=== PATIENT | male | born 1985 | race African-American/Black ===

== ENCOUNTER 2016-10-14 21:46 | Emergency (ER) | payer MEDICAID | END 2016-10-15 02:15 | disposition home or self-care (01) | LOC: D.ER 21:46 | DX: J20.9 Acute bronchitis, unspecified (principal); F84.0 Autistic disorder; F31.9 Bipolar disorder, unspecified; F20.9 Schizophrenia, unspecified; F17.200 Nicotine dependence, unspecified, uncomplicated ==

== ENCOUNTER 2017-10-17 12:53 | Emergency (ER) | payer MEDICAID ==
[2017-10-17 13:23] LABS: BASOPHILS 0.3 % (0-2); HEMATOCRIT 43.8 % (42.0-54.0); HEMOGLOBIN 14.9 g/dL (13.5-17.5); IMMATURE GRANULOCYTES 0.3 % (0-5); LYMPHOCYTES 23.5 % (15-50); MCH 28.9 pg (26.0-34.0); MCV 84.9 fL (80.0-100.0); MEAN PLATELET VOLUME 11.3 fL (7.4-10.4); NEUTROPHILS 64.9 % (40-80); PLATELET COUNT 176 10x3/uL (130-400); RBC 5.16 10x6/uL (4.20-6.10); RDW 13.4 % (11.5-14.5); WBC 6.3 10x3/uL (4.8-10.8)
[2017-10-17 13:45] LABS: AMYLASE - SERUM 89 U/L (25-115); LIPASE 118 U/L (73-393)
[2017-10-17 14:19] LABS: ALKALINE PHOSPHATASE 43 U/L (46-116); ALT (SGPT) 161 U/L (10-68); CALC OSMOLALITY 278 mosm/kg (275-300); CALCIUM 9.1 mg/dL (8.5-10.1); CARBON DIOXIDE 31.2 mmol/L (21.0-32.0); CHLORIDE - SERUM 103 mmol/L (98-107); CREATININE - SERUM 0.9 mg/dL (0.6-1.3); GLUCOSE 86 mg/dL (74-106); POTASSIUM - SERUM 4.4 mmol/L (3.5-5.1); PROTEIN - SERUM 6.9 g/dL (6.4-8.2); SODIUM 141 mmol/L (136-145); UREA NITROGEN 11 mg/dL (7-18); eGFR NON AFRICAN AMERICAN > 90 mL/min (90-120)
[2017-10-17 14:22] LABS: APPEARANCE CLEAR (CLEAR); BILIRUBIN NEGATIVE (NEGATIVE); COLOR YELLOW (YELLOW); GLUCOSE NEGATIVE (NEGATIVE); KETONE NEGATIVE (NEGATIVE); NITRITE NEGATIVE (NEGATIVE); PROTEIN NEGATIVE (NEGATIVE); UROBILINOGEN NORMAL (NORMAL)
== END 2017-10-17 15:50 | disposition home or self-care (01) ==
LOC: D.ER 12:53
PROVIDERS: Emergency Medicine; Physician Assistant
DX: K59.00 Constipation, unspecified (principal); M54.5 Low back pain; F17.200 Nicotine dependence, unspecified, uncomplicated

== ENCOUNTER 2017-10-29 12:18 | Emergency (ER) | payer MEDICAID ==
[2017-10-29 12:57] LABS: APPEARANCE CLEAR (CLEAR); BILIRUBIN NEGATIVE (NEGATIVE); COLOR YELLOW (YELLOW); GLUCOSE NEGATIVE (NEGATIVE); KETONE NEGATIVE (NEGATIVE); NITRITE NEGATIVE (NEGATIVE); PROTEIN NEGATIVE (NEGATIVE); SPECIFIC GRAVITY 1.015 (1.005-1.020); UROBILINOGEN NORMAL (NORMAL)
[2017-10-29 13:17] LABS: BASOPHILS 0.2 % (0-2); EOSINOPHILS 1.7 % (0-7); HEMATOCRIT 44.9 % (42.0-54.0); HEMOGLOBIN 15.3 g/dL (13.5-17.5); IMMATURE GRANULOCYTES 0.2 % (0-5); LYMPHOCYTES 34.6 % (15-50); MCH 28.7 pg (26.0-34.0); MCHC 34.1 g/dL (31.0-37.0); MCV 84.1 fL (80.0-100.0); MEAN PLATELET VOLUME 12.1 fL (7.4-10.4); MONOCYTES 9.1 % (2-11); NEUTROPHILS 54.2 % (40-80); PLATELET COUNT 194 10x3/uL (130-400); RBC 5.34 10x6/uL (4.20-6.10); RDW 13.4 % (11.5-14.5); WBC 5.9 10x3/uL (4.8-10.8)
[2017-10-29 13:19] LABS: ALBUMIN 4.1 g/dL (3.4-5.0); ALKALINE PHOSPHATASE 44 U/L (46-116); ALT (SGPT) 80 U/L (10-68); AMYLASE - SERUM 94 U/L (25-115); BILIRUBIN - TOTAL 0.61 mg/dL (0.2-1.3); CALC OSMOLALITY 282 mosm/kg (275-300); CALCIUM 9.1 mg/dL (8.5-10.1); CARBON DIOXIDE 32.2 mmol/L (21.0-32.0); CHLORIDE - SERUM 103 mmol/L (98-107); CREATININE - SERUM 0.9 mg/dL (0.6-1.3); GLUCOSE 108 mg/dL (74-106); LIPASE 139 U/L (73-393); PROTEIN - SERUM 7.3 g/dL (6.4-8.2); SODIUM 142 mmol/L (136-145); UREA NITROGEN 11 mg/dL (7-18); eGFR NON AFRICAN AMERICAN > 90 mL/min (90-120)
== END 2017-10-29 15:24 | disposition home or self-care (01) ==
LOC: D.ER 12:18
PROVIDERS: Family Medicine
DX: N41.9 Inflammatory disease of prostate, unspecified (principal)

== ENCOUNTER 2017-11-10 10:42 | Emergency (ER) | payer MEDICAID ==
[2017-11-10 12:20] LABS: BASOPHILS 0.2 % (0-2); EOSINOPHILS 1.4 % (0-7); HEMATOCRIT 42.2 % (42.0-54.0); HEMOGLOBIN 14.4 g/dL (13.5-17.5); IMMATURE GRANULOCYTES 0.2 % (0-5); LYMPHOCYTES 32.3 % (15-50); MCH 28.9 pg (26.0-34.0); MCHC 34.1 g/dL (31.0-37.0); MCV 84.6 fL (80.0-100.0); MEAN PLATELET VOLUME 11.2 fL (7.4-10.4); MONOCYTES 10.1 % (2-11); NEUTROPHILS 55.8 % (40-80); RBC 4.99 10x6/uL (4.20-6.10); RDW 13.5 % (11.5-14.5); WBC 5.1 10x3/uL (4.8-10.8)
[2017-11-10 12:23] LABS: ALBUMIN 3.8 g/dL (3.4-5.0); ALKALINE PHOSPHATASE 33 U/L (46-116); ALT (SGPT) 44 U/L (10-68); CALC OSMOLALITY 280 mosm/kg (275-300); CALCIUM 8.5 mg/dL (8.5-10.1); CARBON DIOXIDE 30.5 mmol/L (21.0-32.0); CHLORIDE - SERUM 104 mmol/L (98-107); CREATININE - SERUM 0.8 mg/dL (0.6-1.3); GLUCOSE 152 mg/dL (74-106); POTASSIUM - SERUM 4.3 mmol/L (3.5-5.1); PROTEIN - SERUM 6.8 g/dL (6.4-8.2); SODIUM 140 mmol/L (136-145); UREA NITROGEN 11 mg/dL (7-18); eGFR NON AFRICAN AMERICAN > 90 mL/min (90-120)
[2017-11-10 12:43] LABS: PLATELET COUNT 150 10x3/uL (130-400)
[2017-11-10 12:54] LABS: APPEARANCE CLEAR (CLEAR); BILIRUBIN NEGATIVE (NEGATIVE); COLOR DK YELLOW (YELLOW); GLUCOSE NEGATIVE (NEGATIVE); KETONE NEGATIVE (NEGATIVE); NITRITE NEGATIVE (NEGATIVE); PROTEIN NEGATIVE (NEGATIVE); SPECIFIC GRAVITY 1.025 (1.005-1.020)
== END 2017-11-10 14:10 | disposition home or self-care (01) ==
LOC: D.ER 10:42
PROVIDERS: Family Medicine
DX: R53.1 Weakness (principal); R63.0 Anorexia

== ENCOUNTER 2017-11-12 09:11 | Emergency (ER) | payer MEDICAID | END 2017-11-12 11:36 | disposition home or self-care (01) | LOC: D.ER 09:11 | DX: R10.9 Unspecified abdominal pain (principal) ==

== ENCOUNTER 2017-11-27 07:44 | Emergency (ER) | payer MEDICAID ==
[2017-11-27 08:32] LABS: ALBUMIN 3.5 g/dL (3.4-5.0); ALKALINE PHOSPHATASE 35 U/L (46-116); ALT (SGPT) 33 U/L (10-68); BILIRUBIN - TOTAL 0.67 mg/dL (0.2-1.3); CALC OSMOLALITY 274 mosm/kg (275-300); CALCIUM 8.3 mg/dL (8.5-10.1); CARBON DIOXIDE 30.2 mmol/L (21.0-32.0); CHLORIDE - SERUM 104 mmol/L (98-107); CREATININE - SERUM 0.8 mg/dL (0.6-1.3); LIPASE 96 U/L (73-393); POTASSIUM - SERUM 3.9 mmol/L (3.5-5.1); PROTEIN - SERUM 6.5 g/dL (6.4-8.2); SODIUM 138 mmol/L (136-145); UREA NITROGEN 10 mg/dL (7-18); eGFR NON AFRICAN AMERICAN > 90 mL/min (90-120)
[2017-11-27 08:33] LABS: GLUCOSE 99 mg/dL (74-106)
[2017-11-27 08:45] LABS: APPEARANCE CLEAR (CLEAR); BACTERIA FEW /hpf (NONE SEEN); BILIRUBIN NEGATIVE (NEGATIVE); COLOR YELLOW (YELLOW); EPITHELIAL CELLS RARE /hpf (0-5); GLUCOSE NEGATIVE (NEGATIVE); KETONE NEGATIVE (NEGATIVE); MUCUS <1+ /lpf (NONE SEEN); NITRITE NEGATIVE (NEGATIVE); PROTEIN NEGATIVE (NEGATIVE); UROBILINOGEN NORMAL (NORMAL); WHITE CELLS - URINE RARE /hpf (0-5)
[2017-11-27 09:15] LABS: BASOPHILS 0.4 % (0-2); EOSINOPHILS 3.2 % (0-7); HEMATOCRIT 40.8 % (42.0-54.0); IMMATURE GRANULOCYTES 0.2 % (0-5); LYMPHOCYTES 30.6 % (15-50); MCH 28.8 pg (26.0-34.0); MCHC 34.3 g/dL (31.0-37.0); MEAN PLATELET VOLUME 12.1 fL (7.4-10.4); MONOCYTES 11.2 % (2-11); NEUTROPHILS 54.4 % (40-80); PLATELET COUNT 164 10x3/uL (130-400); RBC 4.86 10x6/uL (4.20-6.10); RDW 13.3 % (11.5-14.5); WBC 4.6 10x3/uL (4.8-10.8)
== END 2017-11-27 09:39 | disposition home or self-care (01) ==
LOC: D.ER 07:44
PROVIDERS: Emergency Medicine
DX: R10.9 Unspecified abdominal pain (principal); K29.00 Acute gastritis without bleeding; F17.200 Nicotine dependence, unspecified, uncomplicated

== ENCOUNTER 2017-12-27 08:52 | Emergency (ER) | payer MEDICAID | END 2017-12-27 09:41 | disposition home or self-care (01) | LOC: D.ER 08:52 | DX: R19.7 Diarrhea, unspecified (principal) ==

== ENCOUNTER 2018-02-25 08:44 | Emergency (ER) | payer MEDICAID ==
[~2018-02-25] VITALS: Ht 172.7 cm; Wt 75.0 kg
[2018-02-25 08:51] VITALS: Ht 172.7 cm; Wt 75.0 kg
[2018-02-25 09:11] LABS: APPEARANCE CLEAR (CLEAR); BILIRUBIN NEGATIVE (NEGATIVE); COLOR STRAW (YELLOW); GLUCOSE NEGATIVE (NEGATIVE); KETONE NEGATIVE (NEGATIVE); NITRITE NEGATIVE (NEGATIVE); PROTEIN NEGATIVE (NEGATIVE); SPECIFIC GRAVITY 1.005 (1.005-1.020); UROBILINOGEN NORMAL (NORMAL)
[2018-02-25 09:16] LABS: BASOPHILS 0.2 % (0-2); EOSINOPHILS 2.7 % (0-7); HEMATOCRIT 39.7 % (42.0-54.0); HEMOGLOBIN 13.8 g/dL (13.5-17.5); IMMATURE GRANULOCYTES 0.2 % (0-5); MCH 28.7 pg (26.0-34.0); MCHC 34.8 g/dL (31.0-37.0); MCV 82.5 fL (80.0-100.0); MEAN PLATELET VOLUME 11.5 fL (7.4-10.4); MONOCYTES 8.3 % (2-11); NEUTROPHILS 58.6 % (40-80); PLATELET COUNT 145 10x3/uL (130-400); RBC 4.81 10x6/uL (4.20-6.10); RDW 13.3 % (11.5-14.5); WBC 4.4 10x3/uL (4.8-10.8)
[2018-02-25 09:33] LABS: ALBUMIN 3.6 g/dL (3.4-5.0); ALKALINE PHOSPHATASE 41 U/L (46-116); ALT (SGPT) 23 U/L (10-68); AMYLASE - SERUM 88 U/L (25-115); BILIRUBIN - TOTAL 0.47 mg/dL (0.2-1.3); CALC OSMOLALITY 275 mosm/kg (275-300); CALCIUM 8.1 mg/dL (8.5-10.1); CARBON DIOXIDE 28.8 mmol/L (21.0-32.0); CHLORIDE - SERUM 104 mmol/L (98-107); CREATININE - SERUM 0.7 mg/dL (0.6-1.3); GLUCOSE 102 mg/dL (74-106); LIPASE 167 U/L (73-393); POTASSIUM - SERUM 3.9 mmol/L (3.5-5.1); PROTEIN - SERUM 6.3 g/dL (6.4-8.2); SODIUM 139 mmol/L (136-145); UREA NITROGEN 8 mg/dL (7-18); eGFR NON AFRICAN AMERICAN > 90 mL/min (90-120)
[2018-02-25 11:03] VITALS: BP 121/82
== END 2018-02-25 11:04 | disposition home or self-care (01) ==
LOC: D.ER 08:44
PROVIDERS: Family Medicine
DX: R10.9 Unspecified abdominal pain (principal); F17.200 Nicotine dependence, unspecified, uncomplicated

== ENCOUNTER 2018-03-06 08:15 | Emergency (ER) | payer MEDICAID ==
[~2018-03-06] VITALS: Ht 172.7 cm; Wt 75.0 kg
[2018-03-06 08:19] VITALS: Ht 172.7 cm; Wt 75.0 kg
[2018-03-06] MEDS ORDERED: XANAX0.25 MG (08:24)
[2018-03-06] MEDS ORDERED: ATIVAN0.5 MG (08:25)
[2018-03-06] MEDS ORDERED: DEPAKOTE ER500 MG PO (08:25)
[2018-03-06] MEDS ORDERED: ZOLOFT50 MG (08:26)
[2018-03-06] MEDS ORDERED: ZYPREXA2.5 MG PO (08:26)
[2018-03-06 09:00] LABS: APPEARANCE CLEAR (CLEAR); BILIRUBIN NEGATIVE (NEGATIVE); COLOR YELLOW (YELLOW); GLUCOSE NEGATIVE (NEGATIVE); KETONE NEGATIVE (NEGATIVE); NITRITE NEGATIVE (NEGATIVE); PROTEIN NEGATIVE (NEGATIVE); UROBILINOGEN NORMAL (NORMAL)
[2018-03-06 09:02] LABS: BASOPHILS 0.2 % (0-2); EOSINOPHILS 1.7 % (0-7); HEMATOCRIT 42.7 % (42.0-54.0); HEMOGLOBIN 14.9 g/dL (13.5-17.5); IMMATURE GRANULOCYTES 0.2 % (0-5); LYMPHOCYTES 29.5 % (15-50); MCHC 34.9 g/dL (31.0-37.0); MCV 83.2 fL (80.0-100.0); MEAN PLATELET VOLUME 11.5 fL (7.4-10.4); MONOCYTES 11.2 % (2-11); NEUTROPHILS 57.2 % (40-80); PLATELET COUNT 164 10x3/uL (130-400); RBC 5.13 10x6/uL (4.20-6.10); RDW 13.4 % (11.5-14.5); WBC 5.3 10x3/uL (4.8-10.8)
[2018-03-06 09:08] LABS: UDS - AMPHET NEGATIVE QUAL (NEGATIVE); UDS - BARB NEGATIVE QUAL (NEGATIVE); UDS - BENZO NEGATIVE QUAL (NEGATIVE); UDS - COCAINE NEGATIVE QUAL (NEGATIVE); UDS - OPIATE NEGATIVE QUAL (NEGATIVE); UDS - PCP NEGATIVE QUAL (NEGATIVE); UDS - THC NEGATIVE QUAL (NEGATIVE)
[2018-03-06 09:42] LABS: ALBUMIN 3.7 g/dL (3.4-5.0); ALKALINE PHOSPHATASE 49 U/L (46-116); ALT (SGPT) 35 U/L (10-68); BILIRUBIN - TOTAL 0.64 mg/dL (0.2-1.3); CALC OSMOLALITY 274 mosm/kg (275-300); CALCIUM 8.8 mg/dL (8.5-10.1); CARBON DIOXIDE 35.2 mmol/L (21.0-32.0); CHLORIDE - SERUM 102 mmol/L (98-107); CREATININE - SERUM 0.8 mg/dL (0.6-1.3); GLUCOSE 97 mg/dL (74-106); POTASSIUM - SERUM 4.4 mmol/L (3.5-5.1); SODIUM 138 mmol/L (136-145); UREA NITROGEN 10 mg/dL (7-18); eGFR NON AFRICAN AMERICAN > 90 mL/min (90-120)
[2018-03-06 09:44] LABS: CKMB 1.2 U/L (0.0-3.6); CREATINE KINASE 128 UL (21-232); VALPROIC ACID (DEPAKOTE) 3.9 ug/mL (50.0-100.0)
[2018-03-06 09:51] LABS: TROPONIN-I < 0.017 ng/mL (0.000-0.060)
[2018-03-06 10:22] VITALS: BP 124/80
== END 2018-03-06 10:23 | disposition home or self-care (01) ==
LOC: D.ER 08:15
PROVIDERS: Family Medicine
DX: R42 Dizziness and giddiness (principal)

== ENCOUNTER 2018-09-10 10:36 | Emergency (ER) | payer MEDICAID ==
[~2018-09-10] VITALS: Ht 172.7 cm; Wt 0.0 kg
[~2018-09-10 10:36] MED LIST: ATIVAN0.5 MG; DEPAKOTE ER500 MG PO; XANAX0.25 MG; ZOLOFT50 MG; ZYPREXA2.5 MG PO
[2018-09-10 10:44] VITALS: Ht 172.7 cm; Wt 0.0 kg
[2018-09-10 11:10] LABS: APPEARANCE CLEAR (CLEAR); BILIRUBIN NEGATIVE (NEGATIVE); COLOR YELLOW (YELLOW); GLUCOSE NEGATIVE (NEGATIVE); KETONE NEGATIVE (NEGATIVE); NITRITE NEGATIVE (NEGATIVE); PROTEIN NEGATIVE (NEGATIVE); UROBILINOGEN NORMAL (NORMAL)
[2018-09-10 11:20] LABS: ALBUMIN 3.9 g/dL (3.4-5.0); ALKALINE PHOSPHATASE 38 U/L (46-116); ALT (SGPT) 23 U/L (10-68); CALC OSMOLALITY 273 mosm/kg (275-300); CALCIUM 8.7 mg/dL (8.5-10.1); CARBON DIOXIDE 26.6 mmol/L (21.0-32.0); CHLORIDE - SERUM 101 mmol/L (98-107); GLUCOSE 129 mg/dL (74-106); POTASSIUM - SERUM 3.9 mmol/L (3.5-5.1); PROTEIN - SERUM 7.1 g/dL (6.4-8.2); SODIUM 137 mmol/L (136-145); UREA NITROGEN 8 mg/dL (7-18); eGFR NON AFRICAN AMERICAN > 90 mL/min (90-120)
[2018-09-10 11:21] LABS: AMYLASE - SERUM 134 U/L (25-115); LIPASE 381 U/L (73-393)
[2018-09-10 11:25] LABS: BASOPHILS 0.4 % (0-2); EOSINOPHILS 1.6 % (0-7); HEMATOCRIT 42.6 % (42.0-54.0); IMMATURE GRANULOCYTES 0.2 % (0-5); LYMPHOCYTES 31.9 % (15-50); MCHC 35.2 g/dL (31.0-37.0); MCV 82.4 fL (80.0-100.0); MEAN PLATELET VOLUME 11.4 fL (7.4-10.4); MONOCYTES 6.9 % (2-11); PLATELET COUNT 186 10x3/uL (130-400); RBC 5.17 10x6/uL (4.20-6.10); RDW 13.7 % (11.5-14.5); WBC 5.1 10x3/uL (4.8-10.8)
[2018-09-10 15:45] VITALS: BP 120/86
== END 2018-09-10 15:48 | disposition home or self-care (01) ==
LOC: D.ER 10:36
PROVIDERS: Family Medicine
DX: R10.30 Lower abdominal pain, unspecified (principal); R74.8 Abnormal levels of other serum enzymes

== ENCOUNTER 2018-09-24 11:07 | Emergency (ER) | payer MEDICAID ==
[~2018-09-24] VITALS: Ht 172.7 cm; Wt 72.6 kg
[2018-09-24 11:09] VITALS: Ht 172.7 cm; Wt 72.6 kg
[2018-09-24 11:26] LABS: BASOPHILS 0.2 % (0-2); EOSINOPHILS 1.8 % (0-7); HEMATOCRIT 42.5 % (42.0-54.0); HEMOGLOBIN 14.7 g/dL (13.5-17.5); IMMATURE GRANULOCYTES 0.2 % (0-5); LYMPHOCYTES 35.1 % (15-50); MCH 28.7 pg (26.0-34.0); MCHC 34.6 g/dL (31.0-37.0); MEAN PLATELET VOLUME 11.3 fL (7.4-10.4); MONOCYTES 9.3 % (2-11); NEUTROPHILS 53.4 % (40-80); PLATELET COUNT 210 10x3/uL (130-400); RBC 5.12 10x6/uL (4.20-6.10); RDW 13.8 % (11.5-14.5)
[2018-09-24 11:47] LABS: ALKALINE PHOSPHATASE 47 U/L (46-116); ALT (SGPT) 24 U/L (10-68); BILIRUBIN - TOTAL 0.72 mg/dL (0.2-1.3); CALC OSMOLALITY 276 mosm/kg (275-300); CALCIUM 8.7 mg/dL (8.5-10.1); CARBON DIOXIDE 31.7 mmol/L (21.0-32.0); CHLORIDE - SERUM 104 mmol/L (98-107); CREATININE - SERUM 0.9 mg/dL (0.6-1.3); GLUCOSE 90 mg/dL (74-106); PROTEIN - SERUM 7.2 g/dL (6.4-8.2); SODIUM 140 mmol/L (136-145); UREA NITROGEN 7 mg/dL (7-18); eGFR NON AFRICAN AMERICAN > 90 mL/min (90-120)
[2018-09-24 13:42] LABS: APPEARANCE SL CLDY (CLEAR); BILIRUBIN NEGATIVE (NEGATIVE); COLOR YELLOW (YELLOW); GLUCOSE NEGATIVE (NEGATIVE); KETONE NEGATIVE (NEGATIVE); NITRITE NEGATIVE (NEGATIVE); PROTEIN NEGATIVE (NEGATIVE); SPECIFIC GRAVITY 1.005 (1.005-1.020); UROBILINOGEN NORMAL (NORMAL)
[2018-09-24] MEDS ORDERED: TORADOL10 MG PO (14:43)
[2018-09-24 15:22] VITALS: BP 139/97
== END 2018-09-24 15:18 | disposition home or self-care (01) ==
LOC: D.ER 11:07
PROVIDERS: Emergency Medicine
DX: R10.11 Right upper quadrant pain (principal)

== ENCOUNTER 2018-09-30 09:20 | Emergency (ER) | payer MEDICAID ==
[~2018-09-30] VITALS: Ht 172.7 cm; Wt 59.3 kg
[~2018-09-30 09:20] MED LIST changes: +TORADOL10 MG PO
[2018-09-30 09:24] VITALS: Ht 172.7 cm; Wt 59.3 kg
[2018-09-30 10:01] LABS: BASOPHILS 0.4 % (0-2); EOSINOPHILS 2.9 % (0-7); HEMATOCRIT 41.4 % (42.0-54.0); HEMOGLOBIN 14.2 g/dL (13.5-17.5); IMMATURE GRANULOCYTES 0.2 % (0-5); LYMPHOCYTES 27.2 % (15-50); MCH 28.5 pg (26.0-34.0); MCHC 34.3 g/dL (31.0-37.0); MCV 83.1 fL (80.0-100.0); MEAN PLATELET VOLUME 11.4 fL (7.4-10.4); MONOCYTES 9.9 % (2-11); NEUTROPHILS 59.4 % (40-80); PLATELET COUNT 175 10x3/uL (130-400); RBC 4.98 10x6/uL (4.20-6.10); RDW 13.8 % (11.5-14.5); WBC 5.5 10x3/uL (4.8-10.8)
[2018-09-30 10:10] LABS: ALBUMIN 3.6 g/dL (3.4-5.0); ALKALINE PHOSPHATASE 44 U/L (46-116); ALT (SGPT) 26 U/L (10-68); BILIRUBIN - TOTAL 0.65 mg/dL (0.2-1.3); CALC OSMOLALITY 278 mosm/kg (275-300); CALCIUM 8.2 mg/dL (8.5-10.1); CARBON DIOXIDE 29.3 mmol/L (21.0-32.0); CHLORIDE - SERUM 104 mmol/L (98-107); CREATININE - SERUM 0.7 mg/dL (0.6-1.3); GLUCOSE 103 mg/dL (74-106); POTASSIUM - SERUM 4.2 mmol/L (3.5-5.1); PROTEIN - SERUM 6.5 g/dL (6.4-8.2); SODIUM 141 mmol/L (136-145); UREA NITROGEN 7 mg/dL (7-18); eGFR NON AFRICAN AMERICAN > 90 mL/min (90-120)
[2018-09-30 10:13] LABS: AMYLASE - SERUM 99 U/L (25-115); LIPASE 198 U/L (73-393); TROPONIN-I < 0.017 ng/mL (0.000-0.060)
[2018-09-30 11:05] LABS: APPEARANCE CLEAR (CLEAR); BILIRUBIN NEGATIVE (NEGATIVE); COLOR YELLOW (YELLOW); GLUCOSE NEGATIVE (NEGATIVE); KETONE NEGATIVE (NEGATIVE); NITRITE NEGATIVE (NEGATIVE); PROTEIN NEGATIVE (NEGATIVE); UROBILINOGEN NORMAL (NORMAL)
[2018-09-30] MEDS ORDERED: ZANTAC300 MG PO (13:29)
[2018-09-30 14:35] VITALS: BP 131/91
== END 2018-09-30 14:37 | disposition home or self-care (01) ==
LOC: D.ER 09:20
PROVIDERS: Family Medicine
DX: R10.13 Epigastric pain (principal)

== ENCOUNTER 2018-11-08 08:19 | Emergency (ER) | payer MEDICAID ==
[~2018-11-08] VITALS: Ht 172.7 cm; Wt 76.4 kg
[~2018-11-08 08:19] MED LIST changes: +ZANTAC300 MG PO
[2018-11-08 08:24] VITALS: Ht 172.7 cm; Wt 76.4 kg
[2018-11-08 08:50] LABS: BASOPHILS 0.2 % (0-2); EOSINOPHILS 2.9 % (0-7); HEMATOCRIT 43.9 % (42.0-54.0); HEMOGLOBIN 15.2 g/dL (13.5-17.5); IMMATURE GRANULOCYTES 0.2 % (0-5); LYMPHOCYTES 29.7 % (15-50); MCH 28.7 pg (26.0-34.0); MCHC 34.6 g/dL (31.0-37.0); MCV 82.8 fL (80.0-100.0); MEAN PLATELET VOLUME 11.7 fL (7.4-10.4); MONOCYTES 11.6 % (2-11); NEUTROPHILS 55.4 % (40-80); PLATELET COUNT 183 10x3/uL (130-400); RDW 14.2 % (11.5-14.5); WBC 6.2 10x3/uL (4.8-10.8)
[2018-11-08 08:56] LABS: APPEARANCE CLEAR (CLEAR); BILIRUBIN NEGATIVE (NEGATIVE); COLOR YELLOW (YELLOW); GLUCOSE NEGATIVE (NEGATIVE); KETONE NEGATIVE (NEGATIVE); NITRITE NEGATIVE (NEGATIVE); PROTEIN NEGATIVE (NEGATIVE); UROBILINOGEN NORMAL (NORMAL)
[2018-11-08 09:04] LABS: ALKALINE PHOSPHATASE 46 U/L (46-116); ALT (SGPT) 37 U/L (10-68); BILIRUBIN - TOTAL 0.71 mg/dL (0.2-1.3); CALC OSMOLALITY 277 mosm/kg (275-300); CALCIUM 9.1 mg/dL (8.5-10.1); CARBON DIOXIDE 31.2 mmol/L (21.0-32.0); CHLORIDE - SERUM 101 mmol/L (98-107); CREATININE - SERUM 0.9 mg/dL (0.6-1.3); GLUCOSE 106 mg/dL (74-106); POTASSIUM - SERUM 4.4 mmol/L (3.5-5.1); PROTEIN - SERUM 7.4 g/dL (6.4-8.2); SODIUM 140 mmol/L (136-145); UREA NITROGEN 10 mg/dL (7-18); eGFR NON AFRICAN AMERICAN > 90 mL/min (90-120)
[2018-11-08 09:07] LABS: AMYLASE - SERUM 92 U/L (25-115); LIPASE 130 U/L (73-393); TROPONIN-I < 0.017 ng/mL (0.000-0.060)
[2018-11-08] MEDS ORDERED: LOMOTIL 2.5-0.1 EAC1 PO (10:24)
[2018-11-08 11:05] VITALS: BP 148/91
== END 2018-11-08 11:07 | disposition home or self-care (01) ==
LOC: D.ER 08:19
PROVIDERS: Emergency Medicine
DX: R19.7 Diarrhea, unspecified (principal); R10.30 Lower abdominal pain, unspecified

== ENCOUNTER 2018-11-23 12:32 | Emergency (ER) | payer MEDICAID ==
[~2018-11-23] VITALS: Ht 172.7 cm; Wt 76.4 kg
[~2018-11-23 12:32] MED LIST changes: +LOMOTIL 2.5-0.1 EAC1 PO
[2018-11-23 12:41] VITALS: Ht 172.7 cm; Wt 76.4 kg
[2018-11-23] MEDS ORDERED: AUGMENTIN 875-11 TAB PO (14:12)
[2018-11-23] MEDS ORDERED: CLARITIN 10 MG10 MG PO (14:12)
[2018-11-23 15:14] VITALS: BP 134/83
== END 2018-11-23 15:14 | disposition home or self-care (01) ==
LOC: D.ER 12:32
DX: J01.30 Acute sphenoidal sinusitis, unspecified (principal)

== ENCOUNTER 2018-12-06 01:41 | Emergency (ER) | payer MEDICAID ==
[~2018-12-06 01:41] MED LIST changes: +AUGMENTIN 875-11 TAB PO; +CLARITIN 10 MG10 MG PO
[2018-12-06 01:44] VITALS: BMI 25.6
[2018-12-06 02:00] LABS: APPEARANCE CLEAR (CLEAR); BILIRUBIN NEGATIVE (NEGATIVE); COLOR YELLOW (YELLOW); GLUCOSE NEGATIVE (NEGATIVE); KETONE SMALL mg/dL (NEGATIVE); NITRITE NEGATIVE (NEGATIVE); PROTEIN NEGATIVE (NEGATIVE); UROBILINOGEN NORMAL (NORMAL)
[2018-12-06 02:13] LABS: BASOPHILS 0.3 % (0-2); HEMATOCRIT 40.3 % (42.0-54.0); HEMOGLOBIN 14.1 g/dL (13.5-17.5); IMMATURE GRANULOCYTES 0.3 % (0-5); LYMPHOCYTES 30.6 % (15-50); MCV 82.9 fL (80.0-100.0); MEAN PLATELET VOLUME 11.3 fL (7.4-10.4); NEUTROPHILS 56.8 % (40-80); PLATELET COUNT 190 10x3/uL (130-400); RBC 4.86 10x6/uL (4.20-6.10); WBC 7.3 10x3/uL (4.8-10.8)
[2018-12-06 02:24] LABS: ALBUMIN 3.7 g/dL (3.4-5.0); ALKALINE PHOSPHATASE 64 U/L (46-116); ALT (SGPT) 28 U/L (10-68); BILIRUBIN - TOTAL 0.41 mg/dL (0.2-1.3); CALC OSMOLALITY 280 mosm/kg (275-300); CALCIUM 8.3 mg/dL (8.5-10.1); CARBON DIOXIDE 27.8 mmol/L (21.0-32.0); CHLORIDE - SERUM 102 mmol/L (98-107); CREATININE - SERUM 0.9 mg/dL (0.6-1.3); GLUCOSE 83 mg/dL (74-106); LIPASE 144 U/L (73-393); POTASSIUM - SERUM 3.8 mmol/L (3.5-5.1); PROTEIN - SERUM 6.8 g/dL (6.4-8.2); SODIUM 141 mmol/L (136-145); UREA NITROGEN 16 mg/dL (7-18); eGFR NON AFRICAN AMERICAN > 90 mL/min (90-120)
[2018-12-06 03:25] VITALS: BP 125/65
[2018-12-06] MEDS ORDERED: ZOFRAN ODT4 MG/UDTAB PO (03:33)
== END 2018-12-06 03:26 | disposition home or self-care (01) ==
LOC: D.ER 01:41
PROVIDERS: Family Medicine
DX: R10.9 Unspecified abdominal pain (principal); F84.0 Autistic disorder

== ENCOUNTER 2018-12-11 08:58 | Emergency (ER) | payer MEDICAID ==
[~2018-12-11] VITALS: Ht 172.7 cm; Wt 76.4 kg
[~2018-12-11 08:58] MED LIST changes: +ZOFRAN ODT4 MG/UDTAB PO
[2018-12-11 09:27] VITALS: Ht 172.7 cm; Wt 76.4 kg
[2018-12-11 10:29] LABS: ALBUMIN 3.8 g/dL (3.4-5.0); ALKALINE PHOSPHATASE 44 U/L (46-116); ALT (SGPT) 29 U/L (10-68); BILIRUBIN - TOTAL 0.58 mg/dL (0.2-1.3); CALC OSMOLALITY 278 mosm/kg (275-300); CALCIUM 8.8 mg/dL (8.5-10.1); CARBON DIOXIDE 32.7 mmol/L (21.0-32.0); CHLORIDE - SERUM 104 mmol/L (98-107); CREATININE - SERUM 0.9 mg/dL (0.6-1.3); GLUCOSE 88 mg/dL (74-106); LIPASE 142 U/L (73-393); POTASSIUM - SERUM 4.4 mmol/L (3.5-5.1); PROTEIN - SERUM 6.8 g/dL (6.4-8.2); SODIUM 141 mmol/L (136-145); UREA NITROGEN 9 mg/dL (7-18); eGFR NON AFRICAN AMERICAN > 90 mL/min (90-120)
[2018-12-11 10:33] LABS: BASOPHILS 0.3 % (0-2); EOSINOPHILS 2.6 % (0-7); HEMATOCRIT 42.5 % (42.0-54.0); HEMOGLOBIN 14.6 g/dL (13.5-17.5); IMMATURE GRANULOCYTES 0.2 % (0-5); LYMPHOCYTES 28.3 % (15-50); MCH 28.6 pg (26.0-34.0); MCHC 34.4 g/dL (31.0-37.0); MCV 83.2 fL (80.0-100.0); MEAN PLATELET VOLUME 11.4 fL (7.4-10.4); NEUTROPHILS 60.6 % (40-80); PLATELET COUNT 180 10x3/uL (130-400); RBC 5.11 10x6/uL (4.20-6.10); RDW 13.9 % (11.5-14.5); WBC 6.2 10x3/uL (4.8-10.8)
[2018-12-11 12:00] VITALS: BP 140/62
[2018-12-11] MEDS ORDERED: CHRONULAC30 ML PO (12:11)
== END 2018-12-11 12:25 | disposition home or self-care (01) ==
LOC: D.ER 08:58
PROVIDERS: Family Medicine
DX: R10.32 Left lower quadrant pain (principal)

== ENCOUNTER 2018-12-18 09:01 | Emergency (ER) | payer MEDICAID ==
[~2018-12-18] VITALS: Ht 172.7 cm; Wt 76.4 kg
[~2018-12-18 09:01] MED LIST changes: +CHRONULAC30 ML PO
[2018-12-18 09:19] VITALS: Ht 172.7 cm; Wt 76.4 kg
[2018-12-18] MEDS ORDERED: BENTYL10 MG PO (09:30)
[2018-12-18 09:46] VITALS: BP 122/80
== END 2018-12-18 09:48 | disposition home or self-care (01) ==
LOC: D.ER 09:01
DX: R10.9 Unspecified abdominal pain (principal); F84.0 Autistic disorder

== ENCOUNTER 2018-12-25 10:30 | Emergency (ER) | payer MEDICAID ==
[~2018-12-25] VITALS: Ht 172.7 cm; Wt 76.8 kg
[~2018-12-25 10:30] MED LIST changes: +BENTYL10 MG PO
[2018-12-25 10:33] VITALS: Ht 172.7 cm; Wt 76.8 kg
[2018-12-25 11:03] LABS: APPEARANCE CLEAR (CLEAR); BILIRUBIN NEGATIVE (NEGATIVE); COLOR YELLOW (YELLOW); GLUCOSE NEGATIVE (NEGATIVE); KETONE NEGATIVE (NEGATIVE); NITRITE NEGATIVE (NEGATIVE); PROTEIN NEGATIVE (NEGATIVE); UROBILINOGEN NORMAL (NORMAL)
[2018-12-25 11:05] LABS: BASOPHILS 0.2 % (0-2); EOSINOPHILS 2.8 % (0-7); HEMATOCRIT 40.4 % (42.0-54.0); HEMOGLOBIN 14.2 g/dL (13.5-17.5); IMMATURE GRANULOCYTES 0.2 % (0-5); LYMPHOCYTES 27.8 % (15-50); MCH 28.9 pg (26.0-34.0); MCHC 35.1 g/dL (31.0-37.0); MCV 82.3 fL (80.0-100.0); MEAN PLATELET VOLUME 10.5 fL (7.4-10.4); MONOCYTES 8.3 % (2-11); NEUTROPHILS 60.7 % (40-80); PLATELET COUNT 173 10x3/uL (130-400); RBC 4.91 10x6/uL (4.20-6.10); RDW 13.6 % (11.5-14.5); WBC 4.9 10x3/uL (4.8-10.8)
[2018-12-25 11:12] LABS: ALBUMIN 3.9 g/dL (3.4-5.0); ALKALINE PHOSPHATASE 45 U/L (46-116); ALT (SGPT) 24 U/L (10-68); AMYLASE - SERUM 107 U/L (25-115); BILIRUBIN - TOTAL 0.68 mg/dL (0.2-1.3); CALC OSMOLALITY 279 mosm/kg (275-300); CALCIUM 8.9 mg/dL (8.5-10.1); CARBON DIOXIDE 30.1 mmol/L (21.0-32.0); CHLORIDE - SERUM 105 mmol/L (98-107); GLUCOSE 95 mg/dL (74-106); LIPASE 299 U/L (73-393); POTASSIUM - SERUM 4.1 mmol/L (3.5-5.1); PROTEIN - SERUM 6.9 g/dL (6.4-8.2); SODIUM 141 mmol/L (136-145); UREA NITROGEN 11 mg/dL (7-18); eGFR NON AFRICAN AMERICAN > 90 mL/min (90-120)
[2018-12-25] MEDS ORDERED: MIRALAX17 GM PO (12:30)
[2018-12-25 12:50] VITALS: BP 124/76
== END 2018-12-25 12:51 | disposition home or self-care (01) ==
LOC: D.ER 10:30
PROVIDERS: Family Medicine
DX: R10.9 Unspecified abdominal pain (principal); K59.00 Constipation, unspecified

== ENCOUNTER 2019-01-07 08:43 | Emergency (ER) | payer MEDICAID ==
[~2019-01-07] VITALS: Ht 172.7 cm; Wt 77.3 kg
[~2019-01-07 08:43] MED LIST changes: +MIRALAX17 GM PO
[2019-01-07 08:46] VITALS: BP 131/78; Ht 172.7 cm; Wt 77.3 kg
[2019-01-07 10:01] LABS: APPEARANCE CLEAR (CLEAR); BACTERIA FEW /hpf (NONE SEEN); BILIRUBIN NEGATIVE (NEGATIVE); COLOR YELLOW (YELLOW); EPITHELIAL CELLS 0-5 /hpf (0-5); GLUCOSE NEGATIVE (NEGATIVE); KETONE NEGATIVE (NEGATIVE); MUCUS <1+ /lpf (NONE SEEN); NITRITE NEGATIVE (NEGATIVE); PROTEIN NEGATIVE (NEGATIVE); SPECIFIC GRAVITY 1.015 (1.005-1.020); WHITE CELLS - URINE 0-5 /hpf (0-5)
== END 2019-01-07 09:25 | disposition home or self-care (01) ==
LOC: D.ER 08:43
PROVIDERS: Emergency Medicine
DX: R10.9 Unspecified abdominal pain (principal); R53.1 Weakness; Z76.5 Malingerer [conscious simulation]

== ENCOUNTER 2019-01-18 12:39 | Emergency (ER) | payer MEDICAID ==
[~2019-01-18] VITALS: Ht 172.7 cm; Wt 76.4 kg
[2019-01-18 12:58] VITALS: Ht 172.7 cm; Wt 76.4 kg
[2019-01-18 13:26] LABS: APPEARANCE CLEAR (CLEAR); BILIRUBIN NEGATIVE (NEGATIVE); COLOR COLORLESS (YELLOW); GLUCOSE NEGATIVE (NEGATIVE); KETONE NEGATIVE (NEGATIVE); NITRITE NEGATIVE (NEGATIVE); PROTEIN NEGATIVE (NEGATIVE); SPECIFIC GRAVITY 1.005 (1.005-1.020); UROBILINOGEN NORMAL (NORMAL)
[2019-01-18 13:40] LABS: ALBUMIN 3.9 g/dL (3.4-5.0); ALKALINE PHOSPHATASE 44 U/L (46-116); ALT (SGPT) 24 U/L (10-68); BILIRUBIN - TOTAL 0.88 mg/dL (0.2-1.3); CALC OSMOLALITY 275 mosm/kg (275-300); CALCIUM 8.9 mg/dL (8.5-10.1); CARBON DIOXIDE 32.8 mmol/L (21.0-32.0); CHLORIDE - SERUM 101 mmol/L (98-107); CREATININE - SERUM 0.8 mg/dL (0.6-1.3); GLUCOSE 96 mg/dL (74-106); POTASSIUM - SERUM 4.3 mmol/L (3.5-5.1); PROTEIN - SERUM 6.9 g/dL (6.4-8.2); SODIUM 138 mmol/L (136-145); UREA NITROGEN 12 mg/dL (7-18); eGFR NON AFRICAN AMERICAN > 90 mL/min (90-120)
[2019-01-18 13:46] LABS: BASOPHILS 0.2 % (0-2); EOSINOPHILS 2.5 % (0-7); HEMATOCRIT 39.9 % (42.0-54.0); IMMATURE GRANULOCYTES 0.2 % (0-5); LYMPHOCYTES 34.6 % (15-50); MCH 28.9 pg (26.0-34.0); MCHC 35.1 g/dL (31.0-37.0); MCV 82.3 fL (80.0-100.0); MEAN PLATELET VOLUME 10.8 fL (7.4-10.4); MONOCYTES 10.9 % (2-11); NEUTROPHILS 51.6 % (40-80); PLATELET COUNT 154 10x3/uL (130-400); RBC 4.85 10x6/uL (4.20-6.10); RDW 13.5 % (11.5-14.5); WBC 5.2 10x3/uL (4.8-10.8)
[2019-01-18 13:56] LABS: AMYLASE - SERUM 100 U/L (25-115); LIPASE 220 U/L (73-393)
[2019-01-18] MEDS ORDERED: BENTYL 20 MG TA20 MG PO (15:27)
[2019-01-18] MEDS ORDERED: MIRALAX17 GM PO (15:27)
[2019-01-18 15:34] VITALS: BP 118/69
== END 2019-01-18 15:46 | disposition home or self-care (01) ==
LOC: D.ER 12:39
PROVIDERS: Emergency Medicine
DX: K59.00 Constipation, unspecified (principal); Z76.5 Malingerer [conscious simulation]

== ENCOUNTER 2019-01-21 13:10 | Emergency (ER) | payer MEDICAID ==
[~2019-01-21] VITALS: Ht 172.7 cm; Wt 77.3 kg
[~2019-01-21 13:10] MED LIST changes: +BENTYL 20 MG TA20 MG PO
[2019-01-21 13:17] VITALS: Ht 172.7 cm; Wt 77.3 kg
[2019-01-21] MEDS ORDERED: DEPAKOTE125 MG PO (17:29)
[2019-01-21 17:48] VITALS: BP 142/66
== END 2019-01-21 17:44 | disposition home or self-care (01) ==
LOC: D.ER 13:10
DX: Z91.14 Patient's other noncompliance with medication regimen (principal)

== ENCOUNTER 2019-02-06 08:46 | Emergency (ER) | payer MEDICAID ==
[~2019-02-06] VITALS: Ht 172.7 cm; Wt 76.4 kg
[~2019-02-06 08:46] MED LIST changes: +DEPAKOTE125 MG PO
[2019-02-06 08:50] VITALS: BP 129/78; Ht 172.7 cm; Wt 76.4 kg
[2019-02-06] MEDS ORDERED: MIRALAX17 GM PO (09:08)
== END 2019-02-06 09:20 | disposition home or self-care (01) ==
LOC: D.ER 08:46
DX: K59.00 Constipation, unspecified (principal)

== ENCOUNTER 2019-02-09 09:14 | Emergency (ER) | payer MEDICAID ==
[~2019-02-09] VITALS: Ht 172.7 cm; Wt 76.8 kg
[2019-02-09 09:29] VITALS: Ht 172.7 cm; Wt 76.8 kg
[2019-02-09 10:12] LABS: BASOPHILS 0.2 % (0-2); EOSINOPHILS 2.7 % (0-7); HEMATOCRIT 39.8 % (42.0-54.0); IMMATURE GRANULOCYTES 0.2 % (0-5); LYMPHOCYTES 32.1 % (15-50); MCH 28.6 pg (26.0-34.0); MCHC 35.2 g/dL (31.0-37.0); MCV 81.2 fL (80.0-100.0); MEAN PLATELET VOLUME 11.7 fL (7.4-10.4); MONOCYTES 7.4 % (2-11); NEUTROPHILS 57.4 % (40-80); PLATELET COUNT 175 10x3/uL (130-400); RDW 13.4 % (11.5-14.5); WBC 4.8 10x3/uL (4.8-10.8)
[2019-02-09 10:13] LABS: APPEARANCE CLEAR (CLEAR); BILIRUBIN NEGATIVE (NEGATIVE); COLOR STRAW (YELLOW); GLUCOSE NEGATIVE (NEGATIVE); KETONE NEGATIVE (NEGATIVE); NITRITE NEGATIVE (NEGATIVE); PROTEIN NEGATIVE (NEGATIVE); SPECIFIC GRAVITY 1.005 (1.005-1.020); UROBILINOGEN NORMAL (NORMAL)
[2019-02-09 10:30] VITALS: BP 118/69
[2019-02-09 10:36] LABS: ALBUMIN 4.1 g/dL (3.4-5.0); ALKALINE PHOSPHATASE 46 U/L (46-116); ALT (SGPT) 23 U/L (10-68); AMYLASE - SERUM 99 U/L (25-115); BILIRUBIN - TOTAL 0.44 mg/dL (0.2-1.3); CALC OSMOLALITY 277 mosm/kg (275-300); CHLORIDE - SERUM 102 mmol/L (98-107); CREATININE - SERUM 0.9 mg/dL (0.6-1.3); GLUCOSE 102 mg/dL (74-106); LIPASE 249 U/L (73-393); POTASSIUM - SERUM 3.8 mmol/L (3.5-5.1); PROTEIN - SERUM 7.2 g/dL (6.4-8.2); SODIUM 140 mmol/L (136-145); UREA NITROGEN 9 mg/dL (7-18); eGFR NON AFRICAN AMERICAN > 90 mL/min (90-120)
== END 2019-02-09 10:34 | disposition home or self-care (01) ==
LOC: D.ER 09:14
PROVIDERS: Emergency Medicine
DX: R10.84 Generalized abdominal pain (principal)

== ENCOUNTER 2019-02-16 12:29 | Emergency (ER) | payer MEDICAID ==
[~2019-02-16] VITALS: Ht 172.7 cm; Wt 76.4 kg
[2019-02-16 12:34] VITALS: Ht 172.7 cm; Wt 76.4 kg
[2019-02-16 12:58] LABS: BASOPHILS 0.2 % (0-2); EOSINOPHILS 1.9 % (0-7); HEMATOCRIT 43.1 % (42.0-54.0); HEMOGLOBIN 15.3 g/dL (13.5-17.5); IMMATURE GRANULOCYTES 0.2 % (0-5); LYMPHOCYTES 36.3 % (15-50); MCH 29.1 pg (26.0-34.0); MCHC 35.5 g/dL (31.0-37.0); MCV 81.9 fL (80.0-100.0); MEAN PLATELET VOLUME 11.3 fL (7.4-10.4); MONOCYTES 11.1 % (2-11); NEUTROPHILS 50.3 % (40-80); PLATELET COUNT 203 10x3/uL (130-400); RBC 5.26 10x6/uL (4.20-6.10); RDW 13.5 % (11.5-14.5); WBC 6.4 10x3/uL (4.8-10.8)
[2019-02-16 13:11] LABS: APPEARANCE CLEAR (CLEAR); BILIRUBIN NEGATIVE (NEGATIVE); COLOR YELLOW (YELLOW); GLUCOSE NEGATIVE (NEGATIVE); KETONE NEGATIVE (NEGATIVE); NITRITE NEGATIVE (NEGATIVE); PROTEIN NEGATIVE (NEGATIVE); UROBILINOGEN NORMAL (NORMAL)
[2019-02-16 13:12] LABS: ALBUMIN 4.2 g/dL (3.4-5.0); ALKALINE PHOSPHATASE 50 U/L (46-116); ALT (SGPT) 32 U/L (10-68); AMYLASE - SERUM 123 U/L (25-115); BILIRUBIN - TOTAL 0.58 mg/dL (0.2-1.3); CALC OSMOLALITY 271 mosm/kg (275-300); CALCIUM 9.2 mg/dL (8.5-10.1); CHLORIDE - SERUM 100 mmol/L (98-107); CREATININE - SERUM 0.9 mg/dL (0.6-1.3); GLUCOSE 92 mg/dL (74-106); LIPASE 297 U/L (73-393); POTASSIUM - SERUM 4.3 mmol/L (3.5-5.1); PROTEIN - SERUM 7.4 g/dL (6.4-8.2); SODIUM 137 mmol/L (136-145); UREA NITROGEN 8 mg/dL (7-18); eGFR NON AFRICAN AMERICAN > 90 mL/min (90-120)
[2019-02-16 13:23] LABS: BACTERIA MODERATE /hpf (NONE SEEN); EPITHELIAL CELLS 0-5 /hpf (0-5); RED CELLS - URINE 0-5 /hpf (0-5); WHITE CELLS - URINE 0-5 /hpf (0-5)
[2019-02-16 14:10] VITALS: BP 120/89
== END 2019-02-16 14:10 | disposition home or self-care (01) ==
LOC: D.ER 12:29
PROVIDERS: Emergency Medicine
DX: K21.9 Gastro-esophageal reflux disease without esophagitis (principal); K59.00 Constipation, unspecified

== ENCOUNTER 2019-03-07 13:13 | Emergency (ER) | payer MEDICAID ==
[~2019-03-07] VITALS: Ht 172.7 cm; Wt 72.7 kg
[2019-03-07 13:17] VITALS: Ht 172.7 cm; Wt 72.7 kg
[2019-03-07] MEDS ORDERED: MIRALAX17 GM PO (14:21)
[2019-03-07 14:49] VITALS: BP 132/78
== END 2019-03-07 14:50 | disposition home or self-care (01) ==
LOC: D.ER 13:13
DX: K59.00 Constipation, unspecified (principal)

== ENCOUNTER 2019-03-13 22:27 | Emergency (ER) | payer MEDICAID ==
[~2019-03-13] VITALS: Ht 172.7 cm; Wt 76.8 kg
[2019-03-13 22:32] VITALS: Ht 172.7 cm; Wt 76.8 kg
[2019-03-13 23:03] LABS: BASOPHILS 0.1 % (0-2); EOSINOPHILS 1.5 % (0-7); HEMATOCRIT 40.6 % (42.0-54.0); HEMOGLOBIN 14.5 g/dL (13.5-17.5); IMMATURE GRANULOCYTES 0.4 % (0-5); LYMPHOCYTES 29.1 % (15-50); MCHC 35.7 g/dL (31.0-37.0); MCV 81.2 fL (80.0-100.0); MEAN PLATELET VOLUME 11.7 fL (7.4-10.4); MONOCYTES 10.8 % (2-11); NEUTROPHILS 58.1 % (40-80); PLATELET COUNT 184 10x3/uL (130-400); RDW 13.7 % (11.5-14.5); WBC 6.8 10x3/uL (4.8-10.8)
[2019-03-13 23:10] LABS: APPEARANCE CLEAR (CLEAR); BILIRUBIN NEGATIVE (NEGATIVE); COLOR YELLOW (YELLOW); GLUCOSE NEGATIVE (NEGATIVE); KETONE SMALL mg/dL (NEGATIVE); NITRITE NEGATIVE (NEGATIVE); PROTEIN NEGATIVE (NEGATIVE); SPECIFIC GRAVITY 1.015 (1.005-1.020); UROBILINOGEN NORMAL (NORMAL)
[2019-03-13 23:18] LABS: ALKALINE PHOSPHATASE 48 U/L (46-116); ALT (SGPT) 23 U/L (10-68); BILIRUBIN - TOTAL 0.41 mg/dL (0.2-1.3); CALC OSMOLALITY 274 mosm/kg (275-300); CALCIUM 8.8 mg/dL (8.5-10.1); CARBON DIOXIDE 31.2 mmol/L (21.0-32.0); CHLORIDE - SERUM 102 mmol/L (98-107); CREATININE - SERUM 0.9 mg/dL (0.6-1.3); GLUCOSE 98 mg/dL (74-106); POTASSIUM - SERUM 3.8 mmol/L (3.5-5.1); PROTEIN - SERUM 7.2 g/dL (6.4-8.2); SODIUM 138 mmol/L (136-145); UREA NITROGEN 11 mg/dL (7-18); eGFR NON AFRICAN AMERICAN > 90 mL/min (90-120)
[2019-03-13 23:23] LABS: AMYLASE - SERUM 91 U/L (25-115); LIPASE 124 U/L (73-393); TROPONIN-I < 0.017 ng/mL (0.000-0.060)
[2019-03-14 00:41] VITALS: BP 122/78
== END 2019-03-14 00:46 | disposition home or self-care (01) ==
LOC: D.ER 22:27
PROVIDERS: Family Medicine
DX: R10.9 Unspecified abdominal pain (principal); Z76.5 Malingerer [conscious simulation]; F31.9 Bipolar disorder, unspecified; F84.0 Autistic disorder

== ENCOUNTER 2019-03-26 08:11 | Emergency (ER) | payer MEDICAID ==
[~2019-03-26] VITALS: Ht 172.7 cm; Wt 81.8 kg
[2019-03-26 08:24] VITALS: Ht 172.7 cm; Wt 81.8 kg
[2019-03-26] MEDS ORDERED: CHRONULAC30 ML PO (09:07)
[2019-03-26 09:15] VITALS: BP 121/91
== END 2019-03-26 09:17 | disposition home or self-care (01) ==
LOC: D.ER 08:11
DX: K59.00 Constipation, unspecified (principal); R10.9 Unspecified abdominal pain

== ENCOUNTER 2019-04-08 08:29 | Emergency (ER) | payer MEDICAID ==
[~2019-04-08] VITALS: Ht 172.7 cm; Wt 84.1 kg
[2019-04-08 08:33] VITALS: BP 146/76; Ht 172.7 cm; Wt 84.1 kg
[2019-04-08] MEDS ORDERED: COLACE100 MG PO (08:41)
== END 2019-04-08 09:09 | disposition home or self-care (01) ==
LOC: D.ER 08:29
DX: R10.9 Unspecified abdominal pain (principal)

== ENCOUNTER 2019-04-16 11:41 | Emergency (ER) | payer MEDICAID ==
[~2019-04-16] VITALS: Ht 172.7 cm; Wt 72.7 kg
[~2019-04-16 11:41] MED LIST changes: +COLACE100 MG PO
[2019-04-16 11:43] VITALS: BP 144/83; Ht 172.7 cm; Wt 72.7 kg
[2019-04-16 12:42] LABS: APPEARANCE CLEAR (CLEAR); BILIRUBIN NEGATIVE (NEGATIVE); COLOR STRAW (YELLOW); GLUCOSE NEGATIVE (NEGATIVE); KETONE NEGATIVE (NEGATIVE); NITRITE NEGATIVE (NEGATIVE); PROTEIN NEGATIVE (NEGATIVE); SPECIFIC GRAVITY 1.015 (1.005-1.020); UROBILINOGEN NORMAL (NORMAL)
[2019-04-16 12:42] LABS: BASOPHILS 0.2 % (0-2); EOSINOPHILS 2.4 % (0-7); HEMATOCRIT 40.2 % (42.0-54.0); IMMATURE GRANULOCYTES 0.2 % (0-5); LYMPHOCYTES 34.7 % (15-50); MCH 28.5 pg (26.0-34.0); MCHC 34.8 g/dL (31.0-37.0); MCV 81.9 fL (80.0-100.0); MEAN PLATELET VOLUME 11.8 fL (7.4-10.4); MONOCYTES 10.9 % (2-11); NEUTROPHILS 51.6 % (40-80); PLATELET COUNT 172 10x3/uL (130-400); RBC 4.91 10x6/uL (4.20-6.10); RDW 13.6 % (11.5-14.5); WBC 4.5 10x3/uL (4.8-10.8)
[2019-04-16 12:50] LABS: ALBUMIN 3.8 g/dL (3.4-5.0); ALKALINE PHOSPHATASE 52 U/L (46-116); ALT (SGPT) 28 U/L (10-68); BILIRUBIN - TOTAL 0.52 mg/dL (0.2-1.3); CALC OSMOLALITY 279 mosm/kg (275-300); CALCIUM 8.9 mg/dL (8.5-10.1); CARBON DIOXIDE 32.6 mmol/L (21.0-32.0); CHLORIDE - SERUM 105 mmol/L (98-107); CREATININE - SERUM 0.8 mg/dL (0.6-1.3); GLUCOSE 71 mg/dL (74-106); POTASSIUM - SERUM 4.7 mmol/L (3.5-5.1); PROTEIN - SERUM 6.8 g/dL (6.4-8.2); SODIUM 142 mmol/L (136-145); UREA NITROGEN 11 mg/dL (7-18); eGFR NON AFRICAN AMERICAN > 90 mL/min (90-120)
[2019-04-16 12:52] LABS: AMYLASE - SERUM 74 U/L (25-115); LIPASE 132 U/L (73-393); TROPONIN-I < 0.017 ng/mL (0.000-0.060)
[2019-04-16] MEDS ORDERED: MIRALAX17 GM PO (15:44)
== END 2019-04-16 15:55 | disposition home or self-care (01) ==
LOC: D.ER 11:41
PROVIDERS: Family Medicine
DX: R10.9 Unspecified abdominal pain (principal); K59.00 Constipation, unspecified

== ENCOUNTER 2019-04-20 04:07 | Emergency (ER) | payer MEDICAID ==
[~2019-04-20] VITALS: Ht 172.7 cm; Wt 75.0 kg
[2019-04-20 04:08] VITALS: Ht 172.7 cm; Wt 75.0 kg
[2019-04-20 05:34] LABS: BASOPHILS 0.1 % (0-2); EOSINOPHILS 1.4 % (0-7); HEMATOCRIT 40.8 % (42.0-54.0); HEMOGLOBIN 14.1 g/dL (13.5-17.5); IMMATURE GRANULOCYTES 0.1 % (0-5); LYMPHOCYTES 28.6 % (15-50); MCH 28.5 pg (26.0-34.0); MCHC 34.6 g/dL (31.0-37.0); MCV 82.4 fL (80.0-100.0); MEAN PLATELET VOLUME 10.9 fL (7.4-10.4); NEUTROPHILS 61.8 % (40-80); PLATELET COUNT 189 10x3/uL (130-400); RBC 4.95 10x6/uL (4.20-6.10); RDW 13.9 % (11.5-14.5)
[2019-04-20 05:47] LABS: APPEARANCE CLEAR (CLEAR); BILIRUBIN NEGATIVE (NEGATIVE); COLOR YELLOW (YELLOW); GLUCOSE NEGATIVE (NEGATIVE); KETONE NEGATIVE (NEGATIVE); NITRITE NEGATIVE (NEGATIVE); PROTEIN NEGATIVE (NEGATIVE); SPECIFIC GRAVITY 1.015 (1.005-1.020); UROBILINOGEN NORMAL (NORMAL)
[2019-04-20 05:48] LABS: ALBUMIN 4.2 g/dL (3.4-5.0); ALKALINE PHOSPHATASE 58 U/L (46-116); ALT (SGPT) 27 U/L (10-68); BILIRUBIN - TOTAL 0.42 mg/dL (0.2-1.3); CALC OSMOLALITY 277 mosm/kg (275-300); CALCIUM 8.7 mg/dL (8.5-10.1); CHLORIDE - SERUM 103 mmol/L (98-107); CREATININE - SERUM 0.8 mg/dL (0.6-1.3); GLUCOSE 101 mg/dL (74-106); PROTEIN - SERUM 7.3 g/dL (6.4-8.2); SODIUM 139 mmol/L (136-145); UREA NITROGEN 13 mg/dL (7-18); eGFR NON AFRICAN AMERICAN > 90 mL/min (90-120)
[2019-04-20] MEDS ORDERED: BENTYL 20 MG TA20 MG PO (06:03)
[2019-04-20 06:41] VITALS: BP 132/85
== END 2019-04-20 06:35 | disposition home or self-care (01) ==
LOC: D.ER 04:07
PROVIDERS: Family Medicine
DX: R10.9 Unspecified abdominal pain (principal); F84.0 Autistic disorder; F31.9 Bipolar disorder, unspecified; F20.9 Schizophrenia, unspecified

== ENCOUNTER 2019-05-12 17:57 | Emergency (ER) | payer MEDICAID ==
[~2019-05-12] VITALS: Ht 172.7 cm; Wt 59.1 kg
[2019-05-12 18:52] VITALS: Ht 172.7 cm; Wt 59.1 kg
[2019-05-12 19:31] LABS: APPEARANCE CLEAR (CLEAR); BILIRUBIN NEGATIVE (NEGATIVE); COLOR YELLOW (YELLOW); GLUCOSE NEGATIVE (NEGATIVE); KETONE NEGATIVE (NEGATIVE); NITRITE NEGATIVE (NEGATIVE); PROTEIN NEGATIVE (NEGATIVE); UROBILINOGEN NORMAL (NORMAL)
[2019-05-12 19:45] LABS: UDS - AMPHET NEGATIVE QUAL (NEGATIVE); UDS - BARB NEGATIVE QUAL (NEGATIVE); UDS - BENZO NEGATIVE QUAL (NEGATIVE); UDS - COCAINE NEGATIVE QUAL (NEGATIVE); UDS - OPIATE NEGATIVE QUAL (NEGATIVE); UDS - PCP NEGATIVE QUAL (NEGATIVE); UDS - THC NEGATIVE QUAL (NEGATIVE)
[2019-05-12 20:03] LABS: BASOPHILS 0.1 % (0-2); HEMATOCRIT 42.2 % (42.0-54.0); HEMOGLOBIN 14.3 g/dL (13.5-17.5); IMMATURE GRANULOCYTES 0.4 % (0-5); LYMPHOCYTES 26.6 % (15-50); MCH 28.6 pg (26.0-34.0); MCHC 33.9 g/dL (31.0-37.0); MCV 84.4 fL (80.0-100.0); MEAN PLATELET VOLUME 11.5 fL (7.4-10.4); MONOCYTES 8.6 % (2-11); NEUTROPHILS 63.3 % (40-80); PLATELET COUNT 207 10x3/uL (130-400); WBC 7.1 10x3/uL (4.8-10.8)
[2019-05-12 20:08] LABS: ALBUMIN 4.2 g/dL (3.4-5.0); ALKALINE PHOSPHATASE 46 U/L (46-116); ALT (SGPT) 20 U/L (10-68); BILIRUBIN - TOTAL 0.68 mg/dL (0.2-1.3); CALC OSMOLALITY 279 mosm/kg (275-300); CALCIUM 9.2 mg/dL (8.5-10.1); CHLORIDE - SERUM 102 mmol/L (98-107); CREATININE - SERUM 0.9 mg/dL (0.6-1.3); GLUCOSE 103 mg/dL (74-106); MAGNESIUM - SERUM 1.7 mg/dL (1.8-2.4); PROTEIN - SERUM 7.5 g/dL (6.4-8.2); SODIUM 141 mmol/L (136-145); UREA NITROGEN 10 mg/dL (7-18); eGFR NON AFRICAN AMERICAN > 90 mL/min (90-120)
[2019-05-13 00:27] VITALS: BP 122/85
== END 2019-05-13 00:28 ==
LOC: D.ER 17:57
PROVIDERS: Emergency Medicine
DX: R45.850 Homicidal ideations (principal); F20.9 Schizophrenia, unspecified

== ENCOUNTER 2019-05-19 10:21 | Emergency (ER) | payer MEDICAID ==
[~2019-05-19] VITALS: Ht 172.7 cm; Wt 83.6 kg
[2019-05-19 10:30] VITALS: Ht 172.7 cm; Wt 83.6 kg
[2019-05-19] MEDS ORDERED: ZOFRAN8 MG PO (12:03)
[2019-05-19 13:15] VITALS: BP 122/72
== END 2019-05-19 13:16 | disposition home or self-care (01) ==
LOC: D.ER 10:21
DX: R10.9 Unspecified abdominal pain (principal); F84.0 Autistic disorder

== ENCOUNTER 2019-05-23 09:58 | Emergency (ER) | payer MEDICAID ==
[~2019-05-23] VITALS: Ht 172.7 cm; Wt 83.7 kg
[~2019-05-23 09:58] MED LIST changes: +ZOFRAN8 MG PO
[2019-05-23 10:19] VITALS: Ht 172.7 cm; Wt 83.7 kg
[2019-05-23] MEDS ORDERED: MIRALAX17 GM PO (12:00)
[2019-05-23 12:21] VITALS: BP 110/80
== END 2019-05-23 12:27 | disposition home or self-care (01) ==
LOC: D.ER 09:58
DX: K59.00 Constipation, unspecified (principal)

== ENCOUNTER 2019-05-31 16:55 | Emergency (ER) | payer MEDICAID ==
[~2019-05-31] VITALS: Ht 172.7 cm; Wt 81.8 kg
[2019-05-31 17:00] VITALS: Ht 172.7 cm; Wt 81.8 kg
[2019-05-31 17:20] LABS: BASOPHILS 0.2 % (0-2); EOSINOPHILS 1.6 % (0-7); HEMATOCRIT 42.1 % (42.0-54.0); HEMOGLOBIN 14.3 g/dL (13.5-17.5); IMMATURE GRANULOCYTES 0.5 % (0-5); LYMPHOCYTES 33.7 % (15-50); MCH 28.6 pg (26.0-34.0); MCV 84.2 fL (80.0-100.0); MEAN PLATELET VOLUME 11.5 fL (7.4-10.4); MONOCYTES 10.1 % (2-11); NEUTROPHILS 53.9 % (40-80); PLATELET COUNT 196 10x3/uL (130-400); RDW 13.8 % (11.5-14.5); WBC 6.2 10x3/uL (4.8-10.8)
[2019-05-31 17:31] LABS: CALC OSMOLALITY 272 mosm/kg (275-300); CALCIUM 8.7 mg/dL (8.5-10.1); CARBON DIOXIDE 30.2 mmol/L (21.0-32.0); CHLORIDE - SERUM 100 mmol/L (98-107); CREATININE - SERUM 0.8 mg/dL (0.6-1.3); GLUCOSE 110 mg/dL (74-106); POTASSIUM - SERUM 3.7 mmol/L (3.5-5.1); SODIUM 137 mmol/L (136-145); UREA NITROGEN 8 mg/dL (7-18); eGFR NON AFRICAN AMERICAN > 90 mL/min (90-120)
[2019-05-31 17:38] LABS: ALKALINE PHOSPHATASE 63 U/L (46-116); ALT (SGPT) 28 U/L (10-68); AMYLASE - SERUM 91 U/L (25-115); BILIRUBIN - TOTAL 0.28 mg/dL (0.2-1.3); LIPASE 137 U/L (73-393); PROTEIN - SERUM 7.1 g/dL (6.4-8.2)
[2019-05-31 18:03] LABS: APPEARANCE CLEAR (CLEAR); BILIRUBIN NEGATIVE (NEGATIVE); COLOR YELLOW (YELLOW); GLUCOSE NEGATIVE (NEGATIVE); KETONE NEGATIVE (NEGATIVE); NITRITE NEGATIVE (NEGATIVE); PROTEIN NEGATIVE (NEGATIVE); SPECIFIC GRAVITY 1.015 (1.005-1.020); UROBILINOGEN NORMAL (NORMAL)
[2019-05-31 19:09] VITALS: BP 163/89
== END 2019-05-31 19:09 | disposition home or self-care (01) ==
LOC: D.ER 16:55
PROVIDERS: Family Medicine
DX: R10.9 Unspecified abdominal pain (principal)